=== PATIENT | female | born 1940 | race Caucasian/White ===

== ENCOUNTER 2016-10-28 07:15 | Outpatient (CLI) | payer MEDICARE | END 2016-10-28 07:16 | disposition home or self-care (01) | DX: E78.5 Hyperlipidemia, unspecified (principal); G62.9 Polyneuropathy, unspecified; C19 Malignant neoplasm of rectosigmoid junction; I10 Essential (primary) hypertension ==

== ENCOUNTER 2016-11-11 08:08 | Outpatient (CLI) | payer MEDICARE ==
--- NOTE | 2016-11-12 17:18 | Mammography Report ---
DIGITAL SCREENING MAMMOGRAM: 11/11/2016 CLINICAL INDICATION: A 76-year-old for screening. COMPARISON: 09/2014, 09/2013, 08/2012, 08/2011, 07/2010, 07/2009, 07/2008, 06/2007. TECHNIQUE: Routine CC and MLO projections were obtained of the breasts. FINDINGS: Parenchymal tissue within the breasts is predominantly fatty replaced. There are no domin ant masses, suspicious microcalcifications, or secondary signs of malignancy. In comparison to the p revious studies, there are no significant changes. IMPRESSION: NO MAMMOGRAPHIC EVIDENCE OF MALIGNANCY. NO SIGNIFICANT INTERVAL CHANGES. RECOMMENDATION: Screening mammography is recommended annually. BIRADS category 1 - negative. STANDARD QUALIFYING STATEMENTS 1. This examination was reviewed with the aid of Computed-Aided Detection (CAD). 2. A negative or benign imaging report should not delay biopsy if clinically suspicious findings are present. Consider surgical consultation if warranted. More than 5% of cancers are not identified b y imaging. 3. Dense breasts may obscure an underlying neoplasm. JOB #: [id number] EXT JOB #:[id number]
== END 2016-11-11 08:09 | disposition home or self-care (01) ==
LOC: DI 08:08
PROVIDERS: ATTEND Family Medicine
DX: Z12.31 Encounter for screening mammogram for malignant neoplasm of breast (principal)
CPT/HCPCS: 77067

== ENCOUNTER 2017-10-14 07:28 | Day surgery (SDC) | payer MEDICARE ==
[2017-10-14] MEDS ORDERED: LACTATED RINGERS 1,000 ML IV ONE (07:40)
[2017-10-14] MEDS ORDERED: MIDAZOLAM 2 MG/2 ML VIAL IVP ONE (09:21)
[2017-10-14] MEDS ORDERED: fentaNYL 100 MCG/2 ML VIAL IVP ONE (09:21)
[2017-10-14 10:32] VITALS: BP 116/46
== END 2017-10-14 07:29 | disposition home or self-care (01) ==
LOC: SDS 07:28
PROVIDERS: ATTEND Internal Medicine Gastroenterology
PROC: 0DBN8ZX Excision of Sigmoid Colon, Via Natural or Artificial Opening Endoscopic, Diagnostic (ICD-10-PCS; 2017-10-14)
PROC: 0DBH8ZX Excision of Cecum, Via Natural or Artificial Opening Endoscopic, Diagnostic (ICD-10-PCS; principal; 2017-10-14 08:45)
DX: Z85.038 Personal history of other malignant neoplasm of large intestine (principal); K63.5 Polyp of colon; Z98.0 Intestinal bypass and anastomosis status; I10 Essential (primary) hypertension; E78.5 Hyperlipidemia, unspecified; J45.909 Unspecified asthma, uncomplicated
CPT/HCPCS: 45380; J7120; 88305

== ENCOUNTER 2017-12-02 08:00 | Outpatient (CLI) | payer MEDICARE ==
[2017-12-02 08:42] LABS: CHOL/HDL RATIO 2.4 (<4.4); CHOLESTEROL 154 mg/dL; HDL CHOLESTEROL 63 mg/dL; LDL CHOLESTEROL,CALCULATED 70 mg/dL; LDL/HDL RATIO 1.1 (<4.4); VLDL CHOLESTEROL 21 mg/dL
== END 2017-12-02 08:01 | disposition home or self-care (01) ==
LOC: LAB 08:00
PROVIDERS: ATTEND Family Medicine
DX: E78.5 Hyperlipidemia, unspecified (principal)
CPT/HCPCS: 36415; 80061; 83721

== ENCOUNTER 2017-12-24 12:54 | Outpatient (CLI) | payer MEDICARE ==
--- NOTE | 2017-12-24 15:10 | Ultrasound Report ---
Procedure Date: 12/24/2017 Accession Number: [id number] / [id number] Procedure: US - Abdomen Limited CPT Code: FULL RESULT: EXAM: Abdomen Limited DATE: 12/24/2017 2:11 PM CLINICAL HISTORY: GALLBLADDER MASS, COLON CA COMPARISON: CT 12/02/2017 TECHNIQUE: Real-time scanning was performed with static images obtained. FINDINGS: The liver measures 12.8 cm. A 1.8 cm cyst is incidentally noted in the left lobe. No solid hepatic lesion or intrahepatic biliary dilatation is present. The common bile duct measures 5 mm. The gallbladder demonstrates a 1.8 x 1.5 x 1.6 cm soft tissue lesion in the neck. No cholelithiasis, gallbladder wall thickening, or pericholecystic fluid is present. The right kidney measures 8.8 cm, and demonstrates a 3 cm cyst in the lower pole. No free fluid is present. IMPRESSION: 1.8 cm soft tissue mass in the neck of the gallbladder, suspicious for tumor. No evidence of cholelithiasis, gallbladder wall thickening, or pericholecystic fluid. RADIA
== END 2017-12-24 12:55 | disposition home or self-care (01) ==
LOC: DI 12:54
PROVIDERS: ATTEND Nurse Practitioner Adult Health
DX: K82.9 Disease of gallbladder, unspecified (principal); C18.9 Malignant neoplasm of colon, unspecified
CPT/HCPCS: 76705

== ENCOUNTER 2018-01-07 15:14 | Outpatient (CLI) | payer MEDICARE ==
--- NOTE | 2018-01-10 08:31 | Mammography Report ---
Procedure Date: 01/07/2018 Accession Number: [id number] / [id number] Procedure: [facility] - Screening Mammo Dig Bilat CPT Code: FULL RESULT: EXAM: Screening Mammo Dig Bilat DATE: 01/07/2018 3:42 PM CLINICAL HISTORY: 77-year-old female with personal history of colon cancer status post chemotherapy. The patient also has a history of hormonal therapy for 10 years and early menses. Last menstrual period was in 1994. TECHNIQUE: Bilateral CC and MLO views were obtained. COMPARISON: 11/11/2016, 09/27/2014, 09/26/2013, 09/06/2012. FINDINGS: The breasts demonstrate diffuse fatty replacement bilaterally. The bilateral breasts contain vascular calcifications, typically benign. No suspicious masses, clustered microcalcifications, or regions of architectural distortion are identified. IMPRESSION: Benign findings RECOMMENDATION: Routine annual screening unless otherwise clinically indicated. BIRADS CATEGORY 2: Benign findings STANDARD QUALIFYING STATEMENTS: 1. This examination was reviewed with the aid of Computer-Aided Detection (CAD). 2. A negative or benign imaging report should not delay biopsy if clinically suspicious findings are present. Consider surgical consultation if warrented. More than 5% of cancers are not identified by imaging. 3. Dense breasts may obscure an underlying neoplasm.
== END 2018-01-07 15:15 | disposition home or self-care (01) ==
LOC: DI 15:14
PROVIDERS: ATTEND Family Medicine
DX: Z12.31 Encounter for screening mammogram for malignant neoplasm of breast (principal)
CPT/HCPCS: 77067

== ENCOUNTER 2018-02-02 09:21 | Outpatient (CLI) | payer MEDICARE ==
[2018-02-02 09:41] LABS: BASOPHILS # (AUTO) 0.1 10^3/uL (0.0-0.1); BASOPHILS % (AUTO) 0.7 %; EOSINOPHILS # (AUTO) 0.6 10^3/uL (0.0-0.7); EOSINOPHILS % (AUTO) 7.9 %; HGB - HEMOGLOBIN 13.6 g/dL (12.0-16.0); LYMPHOCYTES % (AUTO) 25.3 %; MEAN CORPUSCULAR HEMOGLOBIN 31.4 pg (27.0-31.0); MEAN CORPUSCULAR HGB CONC 34.1 g/dL (32.0-36.0); MEAN CORPUSCULAR VOLUME 92.1 fL (81.0-99.0); MEAN PLATELET VOLUME 9.4 fL (7.9-10.8); MONOCYTES # (AUTO) 0.5 10^3/uL (0.0-1.0); MONOCYTES % (AUTO) 6.7 %; NEUTROPHILS # (AUTO) 4.6 10^3/uL (1.5-6.6); NEUTROPHILS % (AUTO) 59.4 %; PLT - PLATELET COUNT 215 10^3/uL (130-450); RED BLOOD COUNT 4.32 10^6/uL (4.20-5.40); RED CELL DISTRIBUTION WIDTH 13.6 % (12.0-15.0); WHITE BLOOD COUNT 7.8 x10^3/uL (4.8-10.8)
[2018-02-02 09:42] LABS: ALBUMIN 4.4 g/dL (3.2-5.5); ALBUMIN/GLOBULIN RATIO 1.5 (1.0-2.2); BILIRUBIN,TOTAL 0.6 mg/dL (0.2-1.0); CALCIUM 9.9 mg/dL (8.5-10.3); CREATININE 0.9 mg/dL (0.4-1.0); TOTAL PROTEIN 7.4 g/dL (6.7-8.2)
== END 2018-02-02 09:22 | disposition home or self-care (01) ==
LOC: LAB 09:21
PROVIDERS: ATTEND Internal Medicine Gastroenterology
DX: D49.0 Neoplasm of unspecified behavior of digestive system (principal)
CPT/HCPCS: 36415; 80053; 85025

== ENCOUNTER 2018-02-02 09:35 | Outpatient (CLI) | payer MEDICARE | END 2018-02-02 09:36 | disposition home or self-care (01) | LOC: RT 09:35 | PROVIDERS: ATTEND Internal Medicine Gastroenterology | DX: I10 Essential (primary) hypertension (principal); D49.0 Neoplasm of unspecified behavior of digestive system | CPT/HCPCS: 36415; 80053; 85025; 93005 ==

== ENCOUNTER 2018-02-08 07:28 | Day surgery (SDC) | payer MEDICARE ==
--- NOTE | 2018-02-08 07:27 | ANESTHESIA ---
Pre-Anesthesia VS, & Labs - Diagnosis gallbladder mass - Procedure laparoscopic cholecystectomy possible open, possible IOC Height 5 ft 6 in Body Mass Index 28.0 - NPO Other (black coffee 0500) - Is Patient ?: No - Lab Results Lab results reviewed: Yes Home Medications and Allergies Home Medications: Ambulatory Orders Medication Instructions Recorded Confirmed Acetaminophen [Pain Relief] 1,000 mg PO DAILY PRN 12/15/12 01/14/18 Multivitamin/Iron/Folic Acid 1 each PO DAILY 12/15/12 01/14/18 [Centrum Complete Multivit Tab] Potassium Chloride [K-Dur] 20 meq PO BID 12/15/12 01/14/18 Simvastatin 40 mg PO HS 12/15/12 01/14/18 Albuterol [Ventolin Hfa] 1 puffs INH Q6H PRN 12/21/12 01/14/18 Calcium Citrate 250 mg PO BID 12/21/12 01/14/18 Chlorpheniramine Maleate 4 mg PO DAILY PRN 12/21/12 01/14/18 [Aller-Chlor] Metoprolol Tartrate [Lopressor] 1 tab PO DAILY 12/04/15 01/14/18 Losartan [Cozaar] 100 mg PO DAILY 06/03/16 01/14/18 Cetirizine [ZyrTEC] 1 tab PO DAILY 12/08/17 01/14/18 Cyanocobalamin (Vitamin B-12) 1 cap PO DAILY 01/14/18 01/14/18 [Vitamin B-12] Allergies/Adverse Reactions: Allergies Allergy/AdvReac Type Severity Reaction Status Date / Time hydrochlorothiazide Allergy Severe Rash Verified 02/07/18 16:25 lisinopril Allergy Intermediate Rash Verified 02/07/18 16:25 silver * Allergy Intermediate blisters Verified 02/07/18 16:25 [From Tegaderm AG Mesh] adhesive tape Allergy Rash Verified 02/07/18 16:25 gabapentin Allergy Rash Verified 02/07/18 16:25 oxybutynin Allergy Unknown Verified 02/07/18 16:25 palm oil Allergy Nausea Verified 02/07/18 16:25 triamterene [From Dyazide] Allergy Unknown Verified 02/07/18 16:25 Anes History & Medical History - Anesthetic History Anesthesia Complications: reports: Slow wake-up Family history of Anesthesia Complications: Denies Family history of Malignant Hyperthermia: Denies - Medical History Cardiovascular: reports: Hypertension, High cholesterol, Other Pulmonary: reports: Asthma Gastrointestinal: reports: GERD, Colon polyps Urinary: reports: None Musculoskeletal: reports: Chronic back pain Endocrine/Autoimmune: reports: None Skin: reports: None Smoking Status: Never smoker - Surgical History General: Bowel surgery Eyes Ears Nose Throat (EENT): Tonsil/Adenoidectomy Urologic: Ureterolithotomy (stones) Gynecologic: Dilation and currettage Orthopedic: Arthroscopic surgery, Other (back surgery) Exam General: Alert, Oriented x3, No acute distress Dental: WNL Mouth Openin Fingerbreadth Neck Mobility: Normal Mallampati classification: II Thyromental Distance: 4-6 cm Respiratory: Lungs clear Cardiovascular: Regular rate, Normal S1, Normal S2, No murmurs Plan Anesthesia Type: General Consent for Procedure(s) Verified and Reviewed: Yes Code Status: Attempt Resuscitation ASA classification: 2-Mild systemic disease Is this case an emergency?: No
[~2018-02-08 07:28] MED LIST: LACTATED RINGERS 1,000 ML IV ONE; ceFAZolin 2 GM/50 ML 2 GM/50 ML BAG IV ONE
[2018-02-08] MEDS ORDERED: LIDOCAINE-MPF 2% 5 ML VIAL IM ONE (08:30)
[2018-02-08] MEDS ORDERED: PHENYLEPHRINE 50 MG/5 ML VIAL IV ONE (08:30)
[2018-02-08] MEDS ORDERED: MIDAZOLAM 2 MG/2 ML VIAL IVP ONE (08:30)
[2018-02-08] MEDS ORDERED: ROCURONIUM 50 MG/5 ML VIAL IVP ONE (08:30)
[2018-02-08] MEDS ORDERED: SODIUM CHLORIDE 0.9% 10 ML VIAL IV ONE (08:30)
[2018-02-08] MEDS ORDERED: fentaNYL 100 MCG/2 ML VIAL IVP ONE (08:30)
[2018-02-08] MEDS ORDERED: ACETAMINOPHEN 1,000 MG/100 ML 100 ML IV ONE (08:30)
[2018-02-08] MEDS ORDERED: GLYCOPYRROLATE 1 MG/5 ML VIAL IVP ONE (08:30)
[2018-02-08] MEDS ORDERED: DEXAMETHASONE 4 MG/ML VIAL IVP ONE (08:30)
[2018-02-08] MEDS ORDERED: ONDANSETRON 4 MG/2 ML VIAL IVP ONE (08:30)
[2018-02-08] MEDS ORDERED: NEOSTIGMINE 1 MG/1 ML 10 ML MDV IVP ONE (08:30)
[2018-02-08] MEDS ORDERED: PROPOFOL 200 MG/20 ML VIAL IVP ONE (08:30)
[2018-02-08] MEDS ORDERED: BUPIVACAINE 0.5% PF 30 ML VIAL INFIL ONE ×2 (09:17)
[2018-02-08] MEDS ORDERED: LACTATED RINGERS 1,000 ML IV ONE (09:30)
[2018-02-08] MEDS ORDERED: IOTHALAMATE MEGLUMINE 50 ML VIAL ONE (09:50)
[2018-02-08] MEDS ORDERED: ONDANSETRON 4 MG/2 ML VIAL ONE (11:12)
[2018-02-08] MEDS ORDERED: HYDROmorphone 0.5 MG/0.5 ML SYRINGE ONE (11:15)
[2018-02-08 12:43] VITALS: BP 117/50
--- NOTE | 2018-02-08 20:35 | OPERATIVE REPORT ---
DATE OF SERVICE: 02/08/2018 Physician: Valdemar Liang MD PREOPERATIVE DIAGNOSIS: Gallbladder mass. POSTOPERATIVE DIAGNOSIS: Cholelithiasis. PROCEDURE PERFORMED: Laparoscopic cholecystectomy. ANESTHESIA: General endotracheal by Michelet Sanz CRNA. SURGEON: Valdemar Liang MD BIOMETRIC TECHNICIAN: Fitz Martinez MD ESTIMATED BLOOD LOSS: Minimal. DRAINS: None. COMPLICATIONS: None. FINDINGS: Laparoscopy revealed extensive adhesions throughout the abdominal cavity from prior abdomi nal surgeries including adhesions between the liver and the anterior abdominal wall and pericholecyst ic adhesions in the right lower quadrant with a large ventral incisional hernia with bowel chronicall y incarcerated within the hernia sac, but no evidence of ischemia laparoscopically. The gallbladder had a normal external appearance aside from pericholecystic adhesions. The cystic duct was of normal caliber. Visualized portions of the liver, stomach, small and large bowel given the limitations of extensive adhesions were within normal limits. Following resection, the gallbladder was seen to cont ain approximately 10 oval-shaped, black, calcium bilirubinate-type stones and no evidence grossly of neoplasm. INDICATIONS: Patient is a 77-year-old woman who was noted on recent imaging studies for followup of colon cancer to have a mass in the infundibulum of her gallbladder. This was thought to measure appr oximately 1.7 cm in diameter and was confirmed both by CT and ultrasound studies. There is no eviden ce of cholelithiasis or invasion outside the wall of the gallbladder and no evidence of ascites, iris opathy, or liver metastasis. She has had no symptoms referable to her gallbladder. She was advised to undergo laparoscopic cholecystectomy with further treatment based on findings at that procedure. TECHNIQUE: After informed consent, patient was taken to the operating room where she was placed unde r general endotracheal anesthesia. Preoperative preparation included application of sequential calf compression boots and administration of 2 grams of cefazolin intravenously within an hour of the inci jenny. Her abdomen was prepared with ChloraPrep solution and draped in the usual sterile fashion. A supraumbilical midline incision 2 cm in length was made just above the umbilicus consisting of the te rminus of a prior lower midline surgical scar. This was carried down sharply under direct vision unt il the peritoneum was identified and entered sharply. A 10 mm Nargis cannula was inserted and pneumo peritoneum achieved with carbon dioxide. A 10 mm 30-degree [place] telescope was inserted. Laparosc opy was carried out with findings as noted above. Three additional 5 mm ports were placed in the rig ht upper quadrant. Instruments were passed. Adhesions were lysed sharply and with electrocautery. Pericholecystic adhesions were lysed. The gallbladder was fully exposed and grasped and retracted in a cephalad and lateral direction exposing the cystic triangle of Calot. This region was carefully d issected using the hook electrode and electrocautery. The cystic duct was isolated adjacent to the g allbladder. The cystic artery was seemed to be small and was cauterized and divided with hook electr ode. The cystic duct was clipped at its junction with the gallbladder. An incision was made distal to the clip and attempts were made to perform cholangiography. However, the cholangiogram catheter c ould not be adequately advanced into the cystic duct and held in place with a clip and after multiple attempts, this was discontinued. The cystic duct was triply clipped distal to the point of incision then divided completely at the point of incision. The gallbladder was then excised from the liver b ed using electrocautery for dissection and hemostasis. The gallbladder was dissected intact, placed in an organ retrieval bag, extracted and opened on a side table with findings as noted above. There is no evidence of neoplasm. Gallbladder and contents were sent for pathologic evaluation. After hem ostasis was assured, the right upper quadrant was copiously irrigated with saline solution, following which instruments and cannula were removed under direct vision. Pneumoperitoneum was allowed to esc ape and the incisions were closed in layers using continuous 0 Vicryl to reapproximate the midline fa scia at the umbilicus, followed by 4-0 Monocryl subcuticular skin closures and Dermabond. A 20 mL of 0.5% Marcaine with epinephrine was infiltrated into the incision to assist in postoperative analgesi a. Anesthesia was terminated. The patient was transferred to the recovery room in satisfactory cond ition. Sponge and needle counts were correct x2 and no drains were used. TD: 02/08/2018 13:05
== END 2018-02-08 07:29 | disposition home or self-care (01) ==
LOC: SDS 07:28
PROVIDERS: ATTEND Internal Medicine Gastroenterology
PROC: 0FT44ZZ Resection of Gallbladder, Percutaneous Endoscopic Approach (ICD-10-PCS; principal; 2018-02-08 08:30)
DX: K80.20 Calculus of gallbladder without cholecystitis without obstruction (principal); Z85.038 Personal history of other malignant neoplasm of large intestine; I10 Essential (primary) hypertension; J45.909 Unspecified asthma, uncomplicated; Z90.49 Acquired absence of other specified parts of digestive tract
CPT/HCPCS: 47562; J0131; J0690; J1170; J7120; Q9961

== ENCOUNTER 2018-11-16 15:54 | Outpatient (CLI) | payer OTHER, MEDICARE | END 2018-11-16 15:55 | disposition critical access hospital (66) | LOC: EMS 15:54 | PROVIDERS: ATTEND Surgery | DX: M54.2 Cervicalgia (principal); M25.511 Pain in right shoulder; M25.562 Pain in left knee; V43.63XA Car passenger injured in collision with pick-up truck in traffic accident, initial encounter; Y92.413 State road as the place of occurrence of the external cause | CPT/HCPCS: A0425; A0427 ==

== ENCOUNTER 2018-11-16 16:09 | Inpatient (IN) | payer OTHER, MEDICARE ==
[2018-11-16] MEDS ORDERED: SODIUM CHLORIDE 0.9% 1,000 ML IV ONE ×3 (16:28→19:21)
[2018-11-16 16:32] LABS: BASOPHILS % (AUTO) 0.3 %; EOSINOPHILS # (AUTO) 0.4 10^3/uL (0.0-0.7); EOSINOPHILS % (AUTO) 4.1 %; HGB - HEMOGLOBIN 12.1 g/dL (12.0-16.0); LYMPHOCYTES % (AUTO) 19.3 %; MEAN CORPUSCULAR HEMOGLOBIN 30.8 pg (27.0-31.0); MEAN CORPUSCULAR HGB CONC 33.3 g/dL (32.0-36.0); MEAN CORPUSCULAR VOLUME 92.4 fL (81.0-99.0); MEAN PLATELET VOLUME 8.5 fL (7.9-10.8); MONOCYTES # (AUTO) 0.5 10^3/uL (0.0-1.0); MONOCYTES % (AUTO) 5.1 %; NEUTROPHILS # (AUTO) 7.4 10^3/uL (1.5-6.6); NEUTROPHILS % (AUTO) 71.2 %; PLT - PLATELET COUNT 291 10^3/uL (130-450); RED BLOOD COUNT 3.95 10^6/uL (4.20-5.40); RED CELL DISTRIBUTION WIDTH 13.2 % (12.0-15.0); WHITE BLOOD COUNT 10.3 x10^3/uL (4.8-10.8)
[2018-11-16] MEDS ORDERED: IOVERSOL 320 100 ML VIAL IVP ONE (16:37)
[2018-11-16 16:39] LABS: INR 1.1 (0.8-1.2); PT - PROTHROMBIN TIME 12.3 secs (9.9-12.6)
[2018-11-16 16:45] LABS: ALBUMIN 3.6 g/dL (3.2-5.5); ALBUMIN/GLOBULIN RATIO 1.2 (1.0-2.2); BILIRUBIN,TOTAL 0.7 mg/dL (0.2-1.0); CREATININE 0.9 mg/dL (0.4-1.0); MAGNESIUM 1.8 mg/dL (1.7-2.8); TOTAL PROTEIN 6.5 g/dL (6.7-8.2)
[2018-11-16] MEDS ORDERED: MORPHINE 10 MG/ML VIAL IVP STA (17:04)
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
[2018-11-16] MEDS ORDERED: KETOROLAC 15 MG/ML VIAL IVP STA (17:29)
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
[2018-11-16] MEDS ORDERED: ACETAMINOPHEN 325 MG TABLET PO STA (18:24)
[2018-11-16] MEDS ORDERED: MORPHINE 2 MG/ML SYRINGE IVP STA (18:24)
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
[2018-11-16 20:33] LABS: HGB - HEMOGLOBIN 11.1 g/dL (12.0-16.0)
[2018-11-16] MEDS ORDERED: SODIUM CHLORIDE FLUSH 0.9% 10 ML SYRINGE IVP PRN (20:53)
[2018-11-16] MEDS: ACETAMINOPHEN 325 MG TABLET PO PRN (21:41)
[2018-11-16] MEDS: SODIUM CHLORIDE 0.9% 1,000 ML IV SCH (21:41)
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
[2018-11-17] MEDS: ACETAMINOPHEN 325 MG TABLET PO PRN ×3 (00:12→20:15)
[2018-11-17] MEDS: SODIUM CHLORIDE FLUSH 0.9% 10 ML SYRINGE IVP SCH ×4 (01:29→17:53)
[2018-11-17] MEDS: SODIUM CHLORIDE 0.9% 1,000 ML IV SCH ×2 (05:17→13:21)
[2018-11-17 05:19] LABS: BASOPHILS % (AUTO) 0.3 %; EOSINOPHILS # (AUTO) 0.1 10^3/uL (0.0-0.7); EOSINOPHILS % (AUTO) 0.8 %; HGB - HEMOGLOBIN 9.3 g/dL (12.0-16.0); LYMPHOCYTES # (AUTO) 1.1 10^3/uL (1.5-3.5); LYMPHOCYTES % (AUTO) 15.7 %; MEAN CORPUSCULAR HEMOGLOBIN 31.4 pg (27.0-31.0); MEAN CORPUSCULAR HGB CONC 33.4 g/dL (32.0-36.0); MEAN CORPUSCULAR VOLUME 94.3 fL (81.0-99.0); MEAN PLATELET VOLUME 8.5 fL (7.9-10.8); MONOCYTES # (AUTO) 0.6 10^3/uL (0.0-1.0); MONOCYTES % (AUTO) 8.4 %; NEUTROPHILS # (AUTO) 5.3 10^3/uL (1.5-6.6); NEUTROPHILS % (AUTO) 74.8 %; PLT - PLATELET COUNT 186 10^3/uL (130-450); RED BLOOD COUNT 2.97 10^6/uL (4.20-5.40); RED CELL DISTRIBUTION WIDTH 13.2 % (12.0-15.0); WHITE BLOOD COUNT 7.1 x10^3/uL (4.8-10.8)
[2018-11-17 05:30] LABS: CALCIUM 7.6 mg/dL (8.5-10.3); CREATININE 0.8 mg/dL (0.4-1.0)
[2018-11-17] MEDS ORDERED: traMADol 50 MG TABLET PO PRN ×2 (08:33→13:42)
[2018-11-17] MEDS ORDERED: ALBUTEROL NEB 2.5 MG/3 ML INH PRN (08:34)
[2018-11-17] MEDS: KETOROLAC 15 MG/ML VIAL IVP PRN ×2 (08:45→18:37)
[2018-11-17] MEDS ORDERED: MORPHINE 2 MG/ML CARPUJECT IVP PRN (08:59)
[2018-11-17] MEDS ORDERED: oxyCODONE 5 MG TABLET PO PRN (09:00)
[2018-11-17] MEDS ORDERED: POLYETHYLENE GLYCOL 3350 17 GM PACKET PO SCH (09:00)
[2018-11-17] MEDS ORDERED: ONDANSETRON 4 MG/2 ML VIAL IVP PRN (09:04)
[2018-11-17 09:05] LABS: ABSOLUTE RETICS # AUTO 0.044 10^6/uL (0.020-0.110); MEAN RETIC VALUE 113.3; RED BLOOD COUNT 3.01 10^6/uL (4.20-5.40)
[2018-11-17 09:30] LABS: % IRON SATURATION 7 % (20-50); FERRITIN 418.7 ng/mL (11.0-306.8); IRON 16 ug/dL (28-170); TOTAL IRON BINDING CAPACITY 217 ug/dL (250-450); TRANSFERRIN 155 mg/dL (192-382)
[2018-11-17] MEDS ORDERED: LORazepam 2 MG/ML VIAL IVP SCH (11:00)
[2018-11-17] MEDS ORDERED: FERRIC GLUCONATE 62.5 MG/5 ML VIAL IVP ONE (12:19)
[2018-11-17] MEDS ORDERED: FERRIC GLUCONATE 125 MG in SODIUM CHLORIDE 0.9% 100ML 100 ML IV ONE (13:30)
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
[2018-11-17] MEDS: MIDODRINE 2.5 MG TABLET PO SCH ×2 (13:50→21:49)
[2018-11-17] MEDS ORDERED: GADOBUTROL 10 MMOL/10 ML VIAL ONE (16:27)
[2018-11-17] MEDS ORDERED: FERROUS SULFATE 325 MG TABLET PO SCH (17:00)
[2018-11-17] MEDS ORDERED: GADOBUTROL 10 MMOL/10 ML VIAL IVP ONE (17:15)
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
[2018-11-18] MEDS: SODIUM CHLORIDE 0.9% 1,000 ML IV SCH (00:03)
[2018-11-18] MEDS: ACETAMINOPHEN 325 MG TABLET PO PRN (00:03)
[2018-11-18] MEDS ORDERED: DEXAMETHASONE 10 MG/ML VIAL IVP ONE (01:18)
[2018-11-18] MEDS: SODIUM CHLORIDE FLUSH 0.9% 10 ML SYRINGE IVP SCH (01:23)
[2018-11-18] MEDS ORDERED: MECLIZINE 12.5 MG TABLET PO STA (02:38)
--- NOTE | 2018-11-18 02:53 | Discharge Plan ---
Discharge Plan Disposition: 02 Transfer Acute Care Hosp Condition: Stable Diet: Regular Activity Restrictions: bedrest Instruction Topics: ED Fx Rib, ED Fx Transverse Spinous Process Additional Instructions or Follow Up instructions: Activity as able based on comfort with the back and legs. You will be having some pain in the left shoulder area as well as the lower back with movement for likely a few weeks due to the fractures. This should heal in place without particular intervention. Your other areas of contusions should heal sooner but still likely over a week or so. Continue usual medications. Naproxen anti-inflammatory twice daily with food. Add Tylenol or hydrocodone as needed for pain. Follow-up with your primary care next week, call for an appointment. Return if worsening pains or problems. No Smoking: If you smoke, Please STOP! Call for help.
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
[2018-11-18 05:04] VITALS: BP 100/40
== END 2018-11-18 05:02 | disposition short-term general hospital (02) | DRG 52 ==
LOC: EDUNIT# → ED 16:09 → MS2 20:53 → OBSVTOIN 11-17 13:57
PROVIDERS: ADMIT Internal Medicine; ATTEND Internal Medicine
DX: S14.155A Other incomplete lesion at C5 level of cervical spinal cord, initial encounter (principal); S32.019A Unspecified fracture of first lumbar vertebra, initial encounter for closed fracture; S32.039A Unspecified fracture of third lumbar vertebra, initial encounter for closed fracture; S22.079A Unspecified fracture of T9-T10 vertebra, initial encounter for closed fracture; S22.089A Unspecified fracture of T11-T12 vertebra, initial encounter for closed fracture; S22.32XA Fracture of one rib, left side, initial encounter for closed fracture; V43.63XA Car passenger injured in collision with pick-up truck in traffic accident, initial encounter; Y92.410 Unspecified street and highway as the place of occurrence of the external cause; R33.9 Retention of urine, unspecified; I95.9 Hypotension, unspecified; S80.812A Abrasion, left lower leg, initial encounter; S30.811A Abrasion of abdominal wall, initial encounter; S40.212A Abrasion of left shoulder, initial encounter; D50.9 Iron deficiency anemia, unspecified; Z98.42 Cataract extraction status, left eye; I10 Essential (primary) hypertension; E78.5 Hyperlipidemia, unspecified; J45.909 Unspecified asthma, uncomplicated; K21.9 Gastro-esophageal reflux disease without esophagitis; J32.9 Chronic sinusitis, unspecified; F40.240 Claustrophobia; G89.29 Other chronic pain; M54.9 Dorsalgia, unspecified; Z66 Do not resuscitate; Z79.51 Long term (current) use of inhaled steroids; Z79.899 Other long term (current) drug therapy; Z85.038 Personal history of other malignant neoplasm of large intestine; Z90.49 Acquired absence of other specified parts of digestive tract; Z92.21 Personal history of antineoplastic chemotherapy
CPT/HCPCS: 36415; 51701; 70450; 71260; 72125; 72156; 72157; 72158; 73590; 74177; 80048; 80053; 82533; 82607; 82728; 83540; 83615; 83690; 83735; 84466; 85014; 85018; 85025; 85044; 85610; 85730; 96361; 96374; 96375; 96376; 99284; 99285; A9270; A9585; G0378; J2060; J2270; J2916; Q9967